=== PATIENT | male | born 1965 | race Caucasian/White ===

== ENCOUNTER → 2024-10-13 13:41 | Outpatient (REF) | payer BC, SELFPAY | LOC: RAD 13:41 | PROVIDERS: ATTENDING PHYSICIAN Family Medicine | DX: R20.0 Anesthesia of skin (principal); I10 Essential (primary) hypertension; G45.9 Transient cerebral ischemic attack, unspecified | CPT/HCPCS: 70450 ==

== ENCOUNTER → 2024-12-20 10:45 | Outpatient (REF) | payer BC, SELFPAY | LOC: MRI 10:45 | PROVIDERS: ATTENDING PHYSICIAN Family Medicine | DX: R93.1 Abnormal findings on diagnostic imaging of heart and coronary circulation (principal); M47.029 Vertebral artery compression syndromes, site unspecified; I77.1 Stricture of artery | CPT/HCPCS: 70553; A9575 ==